=== PATIENT | female | born 1930 | race Caucasian/White ===

== ENCOUNTER 2017-02-17 18:02 | Inpatient (IN) | payer OTHER ==
[~2017-02-17] VITALS: Ht 172.7 cm; Wt 76.2 kg
--- NOTE | ~2017-02-17 | DS ---
[place], [place] DISCHARGE SUMMARY [id number] UN[facility] #: [id number] ROOM: 315 DOCTOR: ROSEANNA LECHUGA BIRTHDATE: [birth year] DOS: 02/28/2017 CHIEF COMPLAINT: This morning, "good morning." HISTORY OF PRESENT ILLNESS: She is an 86-year-old female who came to us from nursing facility. She had been getting increasingly agitated. She walked away from the facility and would not come back. They were unable to redirect her and so they brought her in to the Emergency Room where she became combative and yelling, had to be physically taken from the car. She was very physically aggressive and so was admitted here for medication adjustment and to rule out any organic factors. PAST MEDICAL HISTORY: Positive for dementia and diabetes and some syncopal episodes that happened in the past. SUMMARY OF HOSPITAL COURSE: She was started on Remeron 15 mg at bedtime and Exelon for treatment of her dementia and that was titrated up during her stay. She was treated for a positive UA with Monurol while she was here. There were adjustments made also to her Depakote during her admission here. Her valproic acid level was monitored in order to make those adjustments. DIAGNOSES: Altered mental status and dementia with behaviors. DISPOSITION: She will be discharged to [facility]. Her medications have been e-scribed to her pharmacy. Her condition at discharge is stable. Roseanna Lechuga NP CM:DISCHARG 22 ROSEANNA LECHUGA 02/28/172221 interface
--- NOTE | ~2017-02-17 | PR ---
[place], [place] PROGRESS NOTE NAME: KARLI TUCKER UNIT #: [id number] ROOM: 315 DOCTOR: ROSEANNA LECHUGA BIRTHDATE: [birth year] DOS: 02/21/2017 CHIEF COMPLAINT: "What do you want?" SUBJECTIVE: The patient was seen lying in her bed. She gave very short answers to questions, but is actually more pleasant today than she was yesterday. States that she is feeling okay and that she slept well. She did not get up and eat breakfast today. She told me she is not a breakfast person. PLAN: We increased her Exelon patch to 13.3 mg a day to maximize that. We also added Invega 3 mg every morning and her Depakote was discontinued, as it seemed to be ineffective for her mood lability. We will continue to engage her in individual and perry milieu and discharge her to the least restrictive environment when she is psychologically stable. Roseanna Lechuga NP CM:PNTRANS [id number] ROSEANNA LECHUGA 02/22/17 1047 DENTON GARCIA.PP
--- NOTE | ~2017-02-17 | PR ---
[place], [place] PROGRESS NOTE NAME: KARLI TUCKER UNIT #: [id number] ROOM: 315 DOCTOR: ROSEANNA LECHUGA BIRTHDATE: [birth year] DOS: 02/24/2017 CHIEF COMPLAINT: "This morning, I want to go home." SUMMARY OF THE VISIT: She was resting in bed as she usually as at this time of the morning. She told me she is not a morning person. She is confused, oriented to person herself and sometimes to place, not to time. She had a better day yesterday than she did the day before, where she was swinging wet floor sign at staff, yelling, screaming, etc. She slept about 10 hours last night. Her family is also looking into facilities for possible placement. The plan today, we will go ahead and increase her Invega to 6 mg and also increase her Namenda to try and maximize those therapies for her. We will continue to engage her in individual and perry milieu and discharge her to the least restrictive environment as soon as she is psychologically stable. Roseanna Lechuga NP CM:LORE [phone] ROSEANNA LECHUGA 02/24/17 1001 interface
--- NOTE | ~2017-02-17 | PR ---
[place], [place] PROGRESS NOTE NAME: KARLI TUCKER UNIT #: [id number] ROOM: 315 DOCTOR: ROSEANNA LECHUGA BIRTHDATE: [birth year] DOS: 02/23/2017 CHIEF COMPLAINT: "This morning, what do you want." SUMMARY OF THE VISIT: She was lying in her bed, sleeping, snoring actually when I entered the room. She awakened easily, but was pretty irritated about being awakened which is pretty much every morning. She had a bad night last night. She became agitated, throwing a wet floor sign, yelling and swearing. Staff has noticed that her behavior get worse after lunch up until about suppertime and then she tends to sleep during the night. PLAN: We will add a dose of Ativan at 11:30 in the afternoon to see if we can catch her before she starts getting agitated. We will continue to engage her in individual and perry milieu. Increased her Namenda today as well to try and maximize that therapy. Roseanna Lechuga NP CM:PNTRANS 3 2 ROSEANNA LECHUGA 02/23/17942 interface
--- NOTE | ~2017-02-17 | PR ---
[place], [place] PROGRESS NOTE NAME: KARLI TUCKER UNIT #: [id number] ROOM: 315 DOCTOR: LAURA LAMB MD BIRTHDATE: [birth year] DOS: 02/25/2017 CHIEF COMPLAINT: "I want to go home." SUMMARY OF THE VISIT: The patient was interviewed in the dining area where she was sitting, watching television. She stopped and engaged readily in conversation with me. She did report that she has been here for just one day, which is erroneous, but does state that she would like to be able to go home soon. When I told her that we were working towards this goal and it would hopefully happen soon, she smiled and nodded. Nurses report she continues to be fairly compliant with her meds and does seem to be trending toward improvement that there has been less agitation and mood lability noted. She redirects fairly well. MENTAL STATUS: She is alert and oriented to self, place and that she does know she is in the hospital, but has no idea of timeframe. Mood does seem to be trending towards euthymia and affect is more appropriate. There are no symptoms of elaina or hypomania. There are no overt auditory or visual hallucinations. No delusions, no paranoia. She does process information slowly and short term memory is very poor. PLAN: I will go ahead and increase Namenda to 5 mg in the morning and 10 mg at night with the ultimate goal to hit 20 mg daily to maximize benefit. I will renew Ativan in case she requires p.r.n. intervention. Continue her other psychotropics, continue to engage in individual and perry milieu activity with the ultimate plan to return to her long-term care facility when stable. LAURA LAMB MD CM:PNTRANS 1012 LAURA LAMB MD 02/25/17 1011 interface
--- NOTE | ~2017-02-17 | PR ---
[place], [place] PROGRESS NOTE [facility]: [id number] UNIT #: [id number] ROOM: 315 DOCTOR: LAURA LAMB MD BIRTHDATE: [birth year] DOS: 02/26/2017 CHIEF COMPLAINT: "Can you help me open this." SUMMARY OF THE VISIT: The patient was interviewed as she was completing her breakfast. She was attempting to open an apple juice container, but was having a hard time and she gladly gave it to me and thanked me when I opened it. She was very pleasant upon approach and stated that she was happy and was glad she had a good breakfast to eat. She could not tell me how long she has been here, nor did she really realize where she was. She again reiterated her desire to be able to go home soon. MENTAL STATUS: She is alert and oriented to self, possibly place, although it is doubtful not to time. Mood does seem to be trending towards euthymia and there is less mood lability and she is much more redirectable. There is no hypomania or elaina. There are no overt auditory or visual hallucinations. No delusions, no paranoia. Memory remains grossly impaired. PLAN: I will go ahead and maximize out the Namenda dose to 10 mg twice daily, maintaining the Exelon patch at 13.3 mg a day. I am not seeing true depression here, so I will go ahead and discontinue her Remeron to attempt to simplify her medication regimen, but keep her on the Invega at this point to stop the mood lability. We will continue to engage her in individual and perry milieu activity with the ultimate plan to return to her long-term care facility when psychiatrically stable. LAURA LAMB MD CM:PNTRANS [phone] LAURA LAMB MD 02/26/17 2321 interface
--- NOTE | ~2017-02-17 | WRIGHTHP ---
[place], [place] PATIENT HISTORY AND PHYSICAL EXAM NAME: [id number] UNIT #: [id number] ROOM: 315 DOCTOR: BRIANA BRICENO BIRTHDATE: [birth year] DOS: 02/18/2017 INITIAL PSYCHIATRIC EVALUATION REPORT HISTORY OF PRESENT ILLNESS: This is an 86-year-old female, sent to us from an outside nursing facility, possibly called [facility]. She had increased agitation. She walked away from the facility and would not come back in. Police and family members were called and they could not redirect her. The family members brought her to the Emergency Room in their car but when they arrived, she refused to get out of vehicle, became combative, yelling and had to be apparently physically extricated from the vehicle. Very irritable per nursing staff. Looks like she has a possible urinary tract infection, we are still waiting for the cultures and sensitivity to come back. The patient stated that she just felt like her family had just come to dump her. PAST MEDICAL HISTORY: Includes dementia and diabetes and episodes of syncope. 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 SUMMARY OF VISIT: The patient was admitted to rule out organic factors and stabilize on medications. She was really on limited medications. No dementia medications whatsoever. Most likely, her dementia is progressing. MENTAL STATUS EXAMINATION: She is alert and oriented to person and place, not to time. Mood, very irritable and depressed. Affect is flat and blunted. Can be inappropriate at times. No overt signs of auditory or visual hallucinations or delusions. Maybe, some paranoia. I do not know if the family really did dump her at a nursing facility without communicating well to her or it is just her dementia is progressing that she is forgetting these details. Definitely, some short-term memory deficits noted. PLAN: I started her on Remeron 15 mg at bedtime. I am going to go ahead and start Exelon as well for her dementia. Most likely, I am going to see how she does over the next 24 hours. I am going to aggressively titrate this up. Most likely, I am going to start augmenting with Namenda one or the other soon as well. Let me get a better idea of what is going on with her. Let us see if she kind of calms down anger villatoro and we can kind of go from there. We will continue to try to engage in individual and perry milieu therapy with the plan to discharge once stable. [place], [place] PATIENT HISTORY AND PHYSICAL EXAM NAME: KARLI TUCKER UNIT #: [id number] ROOM: [facility] DOCTOR: BRIANA BRICENO BIRTHDATE: [birth year] MARJORIE BRICENO CNP CM:HISPHYS:PATIENT HISTORY AND PHYSICAL EXAMINATION [phone] BRIANA BRICENO 02/18/17 0847 interface
--- NOTE | ~2017-02-17 | PR ---
[place], [place] PROGRESS NOTE [id number] #: [id number] ROOM: 315 DOCTOR: ROSEANNA LECHUGA BIRTHDATE: [birth year] DOS: 02/27/2017 CHIEF COMPLAINT: This morning, "I feel good." SUMMARY OF THE VISIT: She was up in the dining room, having her breakfast, smiling, talking, interactive with other patients while she was in there. I did speak with her daughter today. She had multiple concerns about her going to the assisted living facility and whether she should visit her there. Met with the social science teacher, spoke with her, with me on speakerphone. Hopefully, we reassured her that her mom is doing much better. MENTAL STATUS: She is alert and oriented to self, I believe to place, do not know about time. Her mood is definitely euthymic and the staff have noticed much less mood lability. She is, like I said, smiling, interactive, no elaina or hypomania, very, very happy to be discharged in the next couple of days when she was told about that. PLAN: We will plan on discharging her on either Monday or Monday. She does seem to be stable at this time. We will continue to engage her in individual and perry milieu and return her to the least restrictive environment when she is psychiatrically stable. Roseanna Lechuga NP CM:LORE 5 ROSEANNA LECHUGA 02/27/17955 interface
--- NOTE | ~2017-02-17 | PR ---
[place], [place] PROGRESS NOTE NAME[id number] UNIT #: [id number] ROOM: 315 DOCTOR: ROSEANNA LECHUGA BIRTHDATE: [birth year] DOS: 02/20/2017 CHIEF COMPLAINT: "I don't like it here. I want to be home." SUMMARY OF THE VISIT: She was lying in bed. She did not open her eyes during the interview at all. She did answer questions that she has been here for a couple of days. When I asked her if she had had her breakfast, she replied "I don't know." She was a little irritable. She was started on Depakote this weekend. PLAN: Today is to increase the a.m. dose of Depakote to 1000 mg and continue the 500 mg at 1:00 and at 9:00. Hopefully, if we can get that daytime dose in her, then she will be more compliant in the afternoon. Of note, her urine was positive for Klebsiella and she will likely receive treatment for the urinary tract infection. We will continue to try to engage her in individual and perry milieu and discharge her back to the [facility] whenever she is psychologically stable. Roseanna Lechuga NP CM:LORE [phone] ROSEANNA LECHUGA 02/20/17 1124 interface
--- NOTE | ~2017-02-17 | PR ---
[place], [place] PROGRESS NOTE NAME: [id number] UNIT #: [id number] ROOM: 315 DOCTOR: BRIANA BRICENO BIRTHDATE: [birth year] DOS: 02/19/2017 SUMMARY OF VISIT: The patient was assessed in the hallway as she was leaving the dining room after finishing her breakfast. She engaged readily in conversation. She was ambulating well. I asked how she was sleeping, she said, all fine. I asked how her appetite was, she says, good. I asked if she was depressed or anxious, she said no, but then she shot me a look. I did ask her what the look was for and she just shook her head and said, ____ are you mad and she gets absolutely ____, I do not want to be here. I expressed that I understood that I was just trying to stabilize her a little bit on medication and would get her out as soon as possible. She seemed pleased with this. Per nursing, her sundowning is exceedingly worse around 5:00 p.m., difficult to redirect, angry, irritable, and almost belligerent. At that point in time, by 4 o'clock, we can no longer get medications. She does not take her evening and late afternoon medications. MENTAL STATUS: Alert and oriented to person, place, I do not think time. Mood is still quite labile. Affect, a little less flat and blunted. She engaged in conversation today, which she did not do very well yesterday. There are no overt signs of auditory or visual hallucinations or delusions. There is some paranoia. Memory overall significant deficits. PLAN: I started her on Remeron and Exelon yesterday. I am going to go ahead and bump up the Exelon to 9.5 mg. I am going to try to aggressively titrate this. I am still considering augmenting this with Namenda but at this point in time, her sundowning and mood lability and impulsivity is so significant I want to concentrate on that right now. So, I am going to add Depakote. I am going to start with 500 mg t.i.d. I am going to see how she responds to this. We will check a Depakote, valproic acid level in a few days and we can go from there. My goal is for the t.i.d. as I can get a morning dose in her and an early afternoon dose and then by evening, if she refuses that third dose, I still have 2 doses in her and can go from there and see if I can take the edge off that. We will continue try to engage in individual and perry milieu therapy, redirect when possible and go from there. [place], [place] PROGRESS NOTE NAME: KARLI TUCKER UNIT #: [id number] ROOM: [facility] DOCTOR: BRIANA BRICENO BIRTHDATE: [birth year] MARJORIE BRICENO CNP CM:LORE [phone] BRIANA BRICENO 02/19/17 1720 interface
--- NOTE | ~2017-02-17 | PR ---
[place], [place] PROGRESS NOTE NAME: KARLI TUCKER UNIT #: [id number] ROOM: 315 DOCTOR: ROSEANNA LECHUGA BIRTHDATE: [birth year] DOS: 02/22/2017 CHIEF COMPLAINT: This morning, good morning. SUMMARY OF THE VISIT: She was lying in bed once again with the covers up over her head. She was more pleasant and engaging today though. She was given a dose of Invega this morning and she tolerated that well, was not interested getting up to go eat or anything. Staff say that she does better taking her medications, the 0600 doses, so we will see what medications we can move to that time in order to try and increase her compliance with her medication regimen. PLAN: Started Namenda today. We will continue to titrate that up and hopefully help more with her cognitive decline. We will continue to engage her in individual and perry milieu and discharge her back to the least restrictive environment whenever she is psychologically stable. Roseanna Lechuga NP CM:PNKAREN [phone] ROSEANNA LECHUGA 02/22/17 1050 DENTON GARCIA.PP
[2017-02-17 18:02] VITALS: BP 167/74
[~2017-02-17 18:02] MED LIST: DEMEROL50 MG PO; PHENERGAN25 M1 PO
[2017-02-17 19:44] LABS: BASO % 0.4 % (0.0-1.0); EOS # 0.1 10*3/uL (0.0-0.4); EOS % 0.9 % (1.0-4.0); HEMATOCRIT 39.5 % (37.0-47.0); HEMOGLOBIN 12.9 g/dl (12.0-16.0); IG # 0.1 10*3/uL (0.0-0.1); LYMPH # 1.2 10*3/uL (1.3-4.4); LYMPH % 13.3 % (27.0-41.0); MEAN CELL VOLUME 86.4 fl (81.0-99.0); MEAN CORPUSCULAR HGB 28.2 pg (27.0-31.0); MEAN CORPUSCULAR HGB CONC 32.7 g/dl (33.0-37.0); MEAN PLATELET VOLUME 9.2 fl (9.6-12.3); MONO # 0.8 10*3/uL (0.1-1.0); MONO % 8.9 % (3.0-9.0); NEUT % 75.6 % (47.0-73.0); PLATELET COUNT AUTOMATED 287 10*3/uL (130-400); RED BLOOD COUNT 4.57 10*6/uL (4.10-5.10); RED CELL DISTRI WIDTH 14.1 % (0-14.5); WHITE BLOOD COUNT 9.3 10*3/uL (4.8-10.8)
[2017-02-17 19:56] LABS: PROTHROMBIN TIME 10.2 SECONDS (9.0-12.4)
[2017-02-17 20:02] LABS: ALBUMIN 3.5 gm/dl (3.1-4.5); ALKALINE PHOSPHATASE 75 U/L (45-117); BILIRUBIN, DIRECT < 0.1 mg/dL (0.0-0.2); BILIRUBIN, TOTAL 0.4 mg/dl (0.2-1.0); BUN 15 mg/dl (7-24); CARBON DIOXIDE 22 mmol/L (21-32); CHLORIDE 106 mmol/L (98-107); EST GLOM FILT AFRICAN AMERICAN > 60 ml/min; GLUCOSE 108 mg/dL (65-99); MAGNESIUM 1.7 mg/dL (1.5-2.1); POTASSIUM 3.7 mmol/L (3.5-5.1); SGOT/AST 13 IU/L (3-35); SGPT/ALT 15 U/L (12-78); SODIUM 139 mmol/L (136-145); TOTAL PROTEIN 7.3 gm/dL (6.4-8.2)
[2017-02-17 20:05] LABS: TROPONIN I < 0.015 ng/ml (<0.045)
[2017-02-17 21:35] LABS: LA>2 REFLEX 2 HR DRAW NOW
[2017-02-17 21:51] LABS: BILIRUBIN NEGATIVE (NEGATIVE); BLOOD 1+ (NEGATIVE); CLARITY SL CLOUDY (CLEAR); COLOR YELLOW (YELLOW); GLUCOSE NEGATIVE (NEGATIVE); KETONE 1+ (NEGATIVE); LEUKO ESTERASE 1+ (NEGATIVE); NITRITE POSITIVE (NEGATIVE); PH 5.5 (5.0-9.0); PROTEIN TRACE (NEGATIVE); SPECIFIC GRAVITY >= 1.030 (1.005-1.030); UROBILINOGEN 0.2 E.U./dl (0.2-1.0)
[2017-02-17 22:04] LABS: BACTERIA 1+; EPITHELIAL CELLS TNTC; URINE REFLEX COMMENT YES (NO); WBC 51-100 wbc/hpf (0-5)
[2017-02-18] MEDS ORDERED: ASPIRIN CHEWABL81 MG PO (00:06)
[2017-02-18] MEDS ORDERED: GLUCOPHAGE500 M1 PO (00:07)
[2017-02-18] MEDS ORDERED: HYDROXYZINE HCL25 MG PO (00:08)
[2017-02-18 00:17] VITALS: BP 170/90
[2017-02-18 00:28] VITALS: BP 170/90
[2017-02-18 07:12] LABS: HEMOGLOBIN A1c 6.1 % (4.8-5.6)
[2017-02-18 07:27] LABS: ALBUMIN 3.2 gm/dl (3.1-4.5); ALKALINE PHOSPHATASE 72 U/L (45-117); BILIRUBIN, TOTAL 0.5 mg/dl (0.2-1.0); BUN 13 mg/dl (7-24); CARBON DIOXIDE 26 mmol/L (21-32); CHLORIDE 106 mmol/L (98-107); EST GLOM FILT AFRICAN AMERICAN > 60 ml/min; GLUCOSE 95 mg/dL (65-99); POTASSIUM 3.4 mmol/L (3.5-5.1); SGOT/AST 14 IU/L (3-35); SGPT/ALT 12 U/L (12-78); SODIUM 142 mmol/L (136-145); TOTAL PROTEIN 6.8 gm/dL (6.4-8.2)
[2017-02-18 07:48] LABS: VITAMIN D, 25-HYDROXY 10.9 ng/mL (30-100)
[2017-02-18 08:24] VITALS: BP 150/68
[2017-02-18 19:55] VITALS: BP 135/60
[2017-02-18 20:00] VITALS: BP 135/60
[2017-02-19 06:27] LABS: BASO % 0.5 % (0.0-1.0); EOS # 0.2 10*3/uL (0.0-0.4); EOS % 2.5 % (1.0-4.0); HEMOGLOBIN 12.8 g/dl (12.0-16.0); IG # 0.1 10*3/uL (0.0-0.1); MEAN CELL VOLUME 84.6 fl (81.0-99.0); MEAN CORPUSCULAR HGB 28.5 pg (27.0-31.0); MEAN CORPUSCULAR HGB CONC 33.7 g/dl (33.0-37.0); MEAN PLATELET VOLUME 8.5 fl (9.6-12.3); MONO % 11.4 % (3.0-9.0); NEUT # 5.1 10*3/uL (2.3-7.9); NEUT % 60.9 % (47.0-73.0); PLATELET COUNT AUTOMATED 310 10*3/uL (130-400); RED BLOOD COUNT 4.49 10*6/uL (4.10-5.10); RED CELL DISTRI WIDTH 14.1 % (0-14.5); WHITE BLOOD COUNT 8.4 10*3/uL (4.8-10.8)
[2017-02-19 06:56] LABS: BUN 14 mg/dl (7-24); CARBON DIOXIDE 26 mmol/L (21-32); CHLORIDE 104 mmol/L (98-107); EST GLOM FILT AFRICAN AMERICAN > 60 ml/min; GLUCOSE 104 mg/dL (65-99); POTASSIUM 3.4 mmol/L (3.5-5.1); SODIUM 139 mmol/L (136-145)
[2017-02-19 08:00] VITALS: BP 148/80
[2017-02-19 19:44] VITALS: BP 115/88
[2017-02-20 07:48] VITALS: BP 134/53
[2017-02-21 08:02] VITALS: BP 142/66
[2017-02-21 20:00] VITALS: BP 140/80
[2017-02-22 09:48] VITALS: BP 147/66
[2017-02-22 10:33] VITALS: BP 147/66
[2017-02-22 19:50] VITALS: BP 127/71
[2017-02-23 08:32] VITALS: BP 158/75
[2017-02-23 20:00] VITALS: BP 149/69
[2017-02-23 20:11] VITALS: BP 149/69
[2017-02-24 08:00] VITALS: BP 120/87
[2017-02-24 20:00] VITALS: BP 140/70
[2017-02-25 07:48] VITALS: BP 133/69
[2017-02-25 20:23] VITALS: BP 142/59
[2017-02-26 08:17] VITALS: BP 123/82
[2017-02-26 20:00] VITALS: BP 149/71
[2017-02-27 07:58] VITALS: BP 132/59
[2017-02-27 20:00] VITALS: BP 145/66
[2017-02-28 07:30] VITALS: BP 136/70
[2017-02-28] MEDS ORDERED: PALIPERIDONE ER6 MG PO (07:46)
[2017-02-28] MEDS ORDERED: VITAMIN D50000 I3 PO (07:46)
[2017-02-28] MEDS ORDERED: EXELON13.3 MG/21 T (07:46)
[2017-02-28] MEDS ORDERED: MEMANTINE HCL10 MG PO (07:46)
== END 2017-02-28 09:50 | disposition home or self-care (01) | DRG 884 ==
LOC: ED → EDBD 18:07 → ED 18:07 → 3N 23:21 → EDHOLD 02-27 13:52 → 3N 02-27 13:53
PROVIDERS: Emergency Medicine; Internal Medicine; Nurse Practitioner Adult Health
DX: F03.91 Unspecified dementia, unspecified severity, with behavioral disturbance (principal); G93.41 Metabolic encephalopathy; N39.0 Urinary tract infection, site not specified; R00.1 Bradycardia, unspecified; F23 Brief psychotic disorder; E87.6 Hypokalemia; E55.9 Vitamin D deficiency, unspecified; E11.9 Type 2 diabetes mellitus without complications; Z79.82 Long term (current) use of aspirin; Z79.84 Long term (current) use of oral hypoglycemic drugs